=== PATIENT | female | born 1975 | race Caucasian/White ===

== ENCOUNTER 2019-09-10 17:28 | Emergency (ER) | payer BC ==
[~2019-09-10] VITALS: Ht 162.6 cm; Wt 89.0 kg
[2019-09-10 18:20] LABS: BASOPHILS # (AUTO) 0.1 X10'3 (0-0.2); BASOPHILS % (AUTO) 0.2 % (0-1); EOSINOPHILS # (AUTO) 0.1 X10'3 (0-0.9); EOSINOPHILS % (AUTO) 0.2 % (0-6); HEMATOCRIT 33.8 % (35.0-45.0); HEMOGLOBIN 11.1 g/dl (12.0-16.0); LYMPHOCYTES # (AUTO) 49.9 X10'3 (1.1-4.8); LYMPHOCYTES % (AUTO) 85.8 % (21-51); MEAN CORPUSCULAR HGB CONC 32.8 g/dL (33.0-36.5); MEAN CORPUSCULAR VOLUME 88.5 FL (78-98); MEAN PLATELET VOLUME 6.4 FL (7.4-10.4); MONOCYTES # (AUTO) 0.5 X10'3 (0-0.9); MONOCYTES % (AUTO) 0.8 % (2-12); NEUTROPHILS # (AUTO) 7.6 X10'3 (1.8-7.7); PLATELET COUNT 195 X10'3 (140-440); RED BLOOD COUNT 3.82 X10'6 (4.20-5.60); RED CELL DISTRIBUTION WIDTH 15.7 % (11.5-14.5)
[2019-09-10 18:23] LABS: WHITE BLOOD COUNT 58.2 X10'3 (4.5-11.0)
[2019-09-10 18:32] LABS: PARTIAL THROMBOPLASTIN TIME 27 SECONDS (22-32)
[2019-09-10 18:41] LABS: CLARITY,URINE CLOUDY (Clear); COLOR,URINE YELLOW (Yellow); GLUCOSE, URINE NEGATIVE (Neg); KETONES,URINE TRACE mg/dl (Neg); LEUKOCYTE ESTERASE ,URINE NEGATIVE (Neg); NITRITES, URINE NEGATIVE (Neg); OCCULT BLOOD,URINE TRACE-INTACT (Neg); PROTEIN,URINE TRACE mg/dl (Neg)
[2019-09-10 18:42] LABS: UA COLLECTION TYPE CLN CATCH MIDSTREAM
[2019-09-10 18:42] LABS: ALANINE AMINOTRANSFERASE 29 U/L (12-78); ALBUMIN 3.2 G/DL (3.4-5.0); ALBUMIN/GLOBULIN RATIO 0.9 (1.1-1.5); ALKALINE PHOSPHATASE 74 IU/L (46-116); ANION GAP 11 (8-16); ASPARTATE AMINO TRANSFERASE 17 U/L (10-37); BILIRUBIN,TOTAL 0.8 MG/DL (0.1-1.0); BLOOD UREA NITROGEN 14 MG/DL (7-18); BUN/CREATININE RATIO 15.4 (6.6-38.0); CALCIUM 8.6 MG/DL (8.5-10.1); CHLORIDE 105 MMOL/L (99-107); CREATININE 0.91 MG/DL (0.40-0.90); GLUCOSE 97 MG/DL (70-104); POTASSIUM 3.5 MMOL/L (3.5-5.1); SODIUM 140 MMOL/L (135-145); TOTAL PROTEIN 6.9 G/DL (6.4-8.2); eGFR 67 ML/MIN
[2019-09-10 18:52] LABS: BACTERIA,URINE 2+ /HPF (Neg); MUCUS STRANDS MANY /LPF (Neg); RBC,URINE 0-2 /HPF (0-2); SQUAMOUS EPITHELIAL CELL,UR MANY /LPF (FEW); WBC,URINE 0-4 /HPF (0-4)
[2019-09-10] MEDS ORDERED: acetaminophen 325mg tablet PO ONE (19:05)
[2019-09-10] MEDS ORDERED: PRED20TA PO (19:21)
[2019-09-10] MEDS ORDERED: AZIT250T83 PO (19:21)
[2019-09-10 19:30] VITALS: BP 155/80
[2019-09-10 20:31] LABS: PLATELET ESTIMATE NORMAL; TOTAL CELLS COUNTED 100
[2019-09-10 20:33] LABS: ELLIPTOCYTES 1+
== END 2019-09-10 19:32 | disposition home or self-care (01) ==
LOC: ER 17:29
DX: J40 Bronchitis, not specified as acute or chronic (principal); C91.10 Chronic lymphocytic leukemia of B-cell type not having achieved remission; Z79.899 Other long term (current) drug therapy
CPT/HCPCS: 36415; 71045; 80053; 81001; 83605; 84145; 85025; 85610; 85730; 87040; 99284

== ENCOUNTER 2022-04-05 08:06 | Emergency (ER) | payer BC, MEDICAID ==
[~2022-04-05] VITALS: Ht 160 cm; Wt 90.0 kg
[2022-04-05] MEDS ORDERED: LIDOcaine 1% 30ml preserv. free vial IJ ONE (09:55)
[2022-04-05] MEDS ORDERED: VALA500T PO (10:15)
[2022-04-05] MEDS ORDERED: AMOX-100 PO (10:15)
[2022-04-05 11:13] VITALS: BP 148/106
== END 2022-04-05 11:16 | disposition home or self-care (01) ==
LOC: ER 08:07
DX: H65.02 Acute serous otitis media, left ear (principal); G51.0 Bell's palsy; M54.2 Cervicalgia; R05.9 Cough, unspecified; M62.838 Other muscle spasm; Z85.6 Personal history of leukemia; Z79.2 Long term (current) use of antibiotics
CPT/HCPCS: 20552; 99284

== ENCOUNTER 2022-07-22 10:41 | Emergency (ER) | payer MEDICAID ==
[~2022-07-22] VITALS: Ht 162.6 cm; Wt 93.0 kg
[2022-07-22 12:04] LABS: BASOPHILS # (AUTO) 0.1 X10'3 (0-0.2); BASOPHILS % (AUTO) 1.6 % (0-1); EOSINOPHILS # (AUTO) 0.1 X10'3 (0-0.9); EOSINOPHILS % (AUTO) 1.6 % (0-6); HEMOGLOBIN 13.3 g/dl (12.0-16.0); LYMPHOCYTES # (AUTO) 1.4 X10'3 (1.1-4.8); MEAN CORPUSCULAR HEMOGLOBIN 32.1 PG (27.0-31.0); MEAN CORPUSCULAR VOLUME 91.7 FL (78-98); MEAN PLATELET VOLUME 6.3 FL (7.4-10.4); MONOCYTES # (AUTO) 0.2 X10'3 (0-0.9); MONOCYTES % (AUTO) 4.9 % (2-12); NEUTROPHILS # (AUTO) 3.3 X10'3 (1.8-7.7); NEUTROPHILS % (AUTO) 64.9 % (42-75); PLATELET COUNT 166 X10'3 (140-440); RED BLOOD COUNT 4.14 X10'6 (4.20-5.60); RED CELL DISTRIBUTION WIDTH 13.5 % (11.5-14.5); WHITE BLOOD COUNT 5.1 X10'3 (4.5-11.0)
[2022-07-22 12:22] LABS: ANION GAP 9 (8-16); CHLORIDE 106 MMOL/L (99-107); GLUCOSE 95 MG/DL (70-104); POTASSIUM 3.5 MMOL/L (3.5-5.1); SODIUM 145 MMOL/L (135-145); TOTAL CARBON DIOXIDE 29.6 MMOL/L (24-32)
[2022-07-22 12:23] LABS: ALANINE AMINOTRANSFERASE 26 U/L (12-78); ALBUMIN 4.1 G/DL (3.4-5.0); ALBUMIN/GLOBULIN RATIO 1.5 (1.1-1.5); ALKALINE PHOSPHATASE 74 IU/L (46-116); ASPARTATE AMINO TRANSFERASE 15 U/L (10-37); BILIRUBIN,TOTAL 0.9 MG/DL (0.1-1.0); BLOOD UREA NITROGEN 15 MG/DL (7-18); BUN/CREATININE RATIO 15.3 (6.6-38.0); CALCIUM 8.6 MG/DL (8.5-10.1); CREATININE 0.98 MG/DL (0.40-0.90); TOTAL PROTEIN 6.8 G/DL (6.4-8.2); eGFR 61 ML/MIN
[2022-07-22] MEDS ORDERED: PARO40TA PO (13:47)
[2022-07-22] MEDS ORDERED: LORA-269 PO (13:47)
--- NOTE | 2022-07-22 13:47 | NUR ---
pt has hx of cancer, CLL. NO LYMPHS REMOVED. PAIN IN LEFT ARM.
[2022-07-22 14:20] VITALS: BP 132/90
== END 2022-07-22 15:03 | disposition home or self-care (01) ==
LOC: ER 10:42
DX: M79.602 Pain in left arm (principal); F41.9 Anxiety disorder, unspecified; Z85.9 Personal history of malignant neoplasm, unspecified; Z79.899 Other long term (current) drug therapy
CPT/HCPCS: 36415; 71045; 80053; 83880; 84443; 84484; 85025; 93005; 99285

== ENCOUNTER 2023-10-27 07:55 | Emergency (ER) | payer MEDICAID ==
[~2023-10-27] VITALS: Ht 160 cm; Wt 90.9 kg
[~2023-10-27 07:55] MED LIST: LORA-269 PO; PARO-154 PO
[2023-10-27 08:03] VITALS: TEMP 97.9
[2023-10-27 09:48] LABS: BASOPHILS % (AUTO) 0.6 % (0-1); HEMATOCRIT 38.6 % (35.0-45.0); HEMOGLOBIN 13.2 g/dl (12.0-16.0); LYMPHOCYTES # (AUTO) 1.1 X10'3 (1.1-4.8); LYMPHOCYTES % (AUTO) 24.7 % (21-51); MEAN CORPUSCULAR HEMOGLOBIN 31.4 PG (27.0-31.0); MEAN CORPUSCULAR HGB CONC 34.2 g/dL (33.0-36.5); MEAN CORPUSCULAR VOLUME 91.8 FL (78-98); MEAN PLATELET VOLUME 6.3 FL (7.4-10.4); MONOCYTES # (AUTO) 0.2 X10'3 (0-0.9); MONOCYTES % (AUTO) 5.5 % (2-12); NEUTROPHILS % (AUTO) 68.2 % (42-75); PLATELET COUNT 160 X10'3 (140-440); RED BLOOD COUNT 4.21 X10'6 (4.20-5.60); WHITE BLOOD COUNT 4.4 X10'3 (4.5-11.0)
[2023-10-27 10:00] LABS: ALANINE AMINOTRANSFERASE 31 U/L (12-78); ALBUMIN 4.1 G/DL (3.4-5.0); ALBUMIN/GLOBULIN RATIO 1.5 (1.1-1.5); ALKALINE PHOSPHATASE 65 IU/L (46-116); ANION GAP 3 (8-16); ASPARTATE AMINO TRANSFERASE 18 U/L (10-37); BILIRUBIN,TOTAL 1.1 MG/DL (0.1-1.0); BLOOD UREA NITROGEN 14 MG/DL (7-18); CALCIUM 8.8 MG/DL (8.5-10.1); CHLORIDE 106 MMOL/L (99-107); GLUCOSE 95 MG/DL (70-104); POTASSIUM 4.1 MMOL/L (3.5-5.1); SODIUM 138 MMOL/L (135-145); TOTAL CARBON DIOXIDE 29.4 MMOL/L (24-32); TOTAL PROTEIN 6.9 G/DL (6.4-8.2); eCRCL 57 ML/MIN; eGFR 59 ML/MIN
[2023-10-27 10:08] LABS: PRO BRAIN NATRIURETIC PEPTIDE < 30 PG/ML (0-125)
[2023-10-27 10:12] LABS: BILIRUBIN,URINE NEGATIVE (Neg); CLARITY,URINE CLEAR (Clear); COLOR,URINE YELLOW (Yellow); GLUCOSE, URINE NEGATIVE (Neg); KETONES,URINE NEGATIVE (Neg); LEUKOCYTE ESTERASE ,URINE NEGATIVE (Neg); NITRITES, URINE NEGATIVE (Neg); OCCULT BLOOD,URINE NEGATIVE (Neg); PH,URINE 6.5 (4.8-8.0); PROTEIN,URINE NEGATIVE (Neg); UROBILINOGEN,URINE 0.2 E.U/dL (0.2-1.0)
[2023-10-27 10:15] LABS: UA COLLECTION TYPE CLN CATCH MIDSTREAM
[2023-10-27 10:23] LABS: HCG SERUM QL NEGATIVE
[2023-10-27] MEDS ORDERED: diphenhydrAMINE 50 mg/ml inj IV ONE (14:50)
[2023-10-27] MEDS ORDERED: magnesium 2GM in 50ml NS 50 ML IV ONE (14:50)
[2023-10-27] MEDS ORDERED: metoclopramide 5 mg/ml inj IV ONE (14:50)
[2023-10-27] MEDS ORDERED: normal saline 1000ML IV soln IVB ONE (14:50)
[2023-10-27 15:19] VITALS: BP 138/88; PULSE 77; RESP 16; O2SAT 100
== END 2023-10-27 18:41 | disposition home or self-care (01) ==
LOC: ER 07:55
DX: R51.9 Headache, unspecified (principal); R42 Dizziness and giddiness; M54.2 Cervicalgia; R11.0 Nausea; R53.83 Other fatigue; Z85.6 Personal history of leukemia; Z79.899 Other long term (current) drug therapy
CPT/HCPCS: 36415; 70450; 71045; 80053; 81003; 83880; 84484; 84703; 85025; 93005; 96365; 96366; 96375; 99285; J1200; J2765; J3475; J7030

== ENCOUNTER 2023-12-16 15:27 | Emergency (ER) | payer MEDICAID ==
[~2023-12-16] VITALS: Ht 160 cm; Wt 93.6 kg
[2023-12-16 15:43] VITALS: BP 153/90; PULSE 74; TEMP 98.5; O2SAT 98
[2023-12-16] MEDS: normal saline 1000ML IV soln IVB ONE (16:13)
[2023-12-16 16:21] VITALS: RESP 16
[2023-12-16] MEDS: ketorolac tromethamine 15mg/ml inj. IV ONE (16:21)
[2023-12-16] MEDS: proCHLORperazine 10 MG/2 ml inj IV ONE (16:22)
[2023-12-16] MEDS: diphenhydrAMINE 50 mg/ml inj IV ONE (16:22)
[2023-12-16] MEDS ORDERED: SUMA50TA17 PO (17:26)
[2023-12-16] MEDS ORDERED: ONDA4TAB12 PO (17:26)
== END 2023-12-16 17:34 | disposition home or self-care (01) ==
LOC: ER 15:28
DX: R51.9 Headache, unspecified (principal); M54.2 Cervicalgia; Z79.899 Other long term (current) drug therapy
CPT/HCPCS: 96361; 96374; 96375; 99284; J0780; J1200; J1885; J7030

== ENCOUNTER 2024-04-06 19:09 | Emergency (ER) | payer MEDICAID ==
[~2024-04-06] VITALS: Ht 160 cm; Wt 93.2 kg
[~2024-04-06 19:09] MED LIST changes: +ONDA4TAB12 PO; +SUMA50TA17 PO
[2024-04-06 19:37] LABS: BASOPHILS % (AUTO) 0.5 % (0-1); EOSINOPHILS # (AUTO) 0.1 X10'3 (0-0.9); HEMATOCRIT 36.6 % (35.0-45.0); HEMOGLOBIN 12.5 g/dl (12.0-16.0); LYMPHOCYTES # (AUTO) 1.3 X10'3 (1.1-4.8); LYMPHOCYTES % (AUTO) 28.4 % (21-51); MEAN CORPUSCULAR HEMOGLOBIN 30.9 PG (27.0-31.0); MEAN CORPUSCULAR HGB CONC 34.3 g/dL (33.0-36.5); MEAN CORPUSCULAR VOLUME 90.1 FL (78-98); MEAN PLATELET VOLUME 6.3 FL (7.4-10.4); MONOCYTES # (AUTO) 0.3 X10'3 (0-0.9); MONOCYTES % (AUTO) 5.9 % (2-12); NEUTROPHILS % (AUTO) 63.2 % (42-75); PLATELET COUNT 179 X10'3 (140-440); RED BLOOD COUNT 4.06 X10'6 (4.20-5.60); RED CELL DISTRIBUTION WIDTH 14.4 % (11.5-14.5); WHITE BLOOD COUNT 4.7 X10'3 (4.5-11.0)
[2024-04-06 19:58] LABS: ALANINE AMINOTRANSFERASE 50 U/L (12-78); ALBUMIN/GLOBULIN RATIO 1.4 (1.1-1.5); ALKALINE PHOSPHATASE 58 IU/L (46-116); ANION GAP 6 (8-16); ASPARTATE AMINO TRANSFERASE 23 U/L (10-37); BILIRUBIN,TOTAL 1.1 MG/DL (0.1-1.0); BLOOD UREA NITROGEN 17 MG/DL (7-18); BUN/CREATININE RATIO 17.3 (10.0-20.0); CHLORIDE 106 MMOL/L (99-107); CREATININE 0.98 MG/DL (0.40-0.90); GLUCOSE 103 MG/DL (70-104); LIPASE 29 U/L (16-77); POTASSIUM 3.9 MMOL/L (3.5-5.1); SODIUM 142 MMOL/L (135-145); TOTAL CARBON DIOXIDE 30.2 MMOL/L (24-32); TOTAL PROTEIN 6.9 G/DL (6.4-8.2); eCRCL 57 ML/MIN; eGFR 60 ML/MIN
[2024-04-06] MEDS: diatr meglu/diatrizoate 30ml oral sol.-(3 dose) bottle PO SCH (20:55)
[2024-04-06 21:02] LABS: BILIRUBIN,URINE NEGATIVE (Neg); CLARITY,URINE CLEAR (Clear); COLOR,URINE YELLOW (Yellow); GLUCOSE, URINE NEGATIVE (Neg); KETONES,URINE NEGATIVE (Neg); LEUKOCYTE ESTERASE ,URINE MODERATE (Neg); NITRITES, URINE NEGATIVE (Neg); OCCULT BLOOD,URINE NEGATIVE (Neg); PROTEIN,URINE NEGATIVE (Neg); UROBILINOGEN,URINE 0.2 E.U/dL (0.2-1.0)
[2024-04-06 21:03] LABS: UA COLLECTION TYPE URINAL; URINE HCG NEGATIVE (NEG)
[2024-04-06 21:11] LABS: BACTERIA,URINE NONE SEEN /HPF (Neg); MUCUS STRANDS FEW /LPF (Neg); RBC,URINE 0-2 /HPF (0-2); SQUAMOUS EPITHELIAL CELL,UR FEW /LPF (FEW); TRANSITIONAL EPI CELLS,URINE FEW /HPF
[2024-04-06 21:14] LABS: AMYLASE 24 U/L (25-115)
[2024-04-06] MEDS ORDERED: HYDR-3965 PO (22:30)
[2024-04-06] MEDS ORDERED: ketorolac trometh. 30mg/ml inj. IM ONE (22:30)
[2024-04-06] MEDS ORDERED: ONDA8TAB13 PO (22:30)
[2024-04-06] MEDS ORDERED: CEPH-585 PO (22:34)
[2024-04-06] MEDS: cephalexin 250mg capsule PO ONE (22:44)
[2024-04-06] MEDS: acetaminophen 325mg tablet PO ONE (22:44)
[2024-04-06] MEDS: ondansetron 4mg rapidly disintigrating tab PO ONE (22:45)
[2024-04-06] MEDS: ketorolac tromethamine 15mg/ml inj. IM ONE (22:46)
[2024-04-07 00:37] VITALS: BP 163/87; PULSE 71; RESP 18; TEMP 98; O2SAT 98
== END 2024-04-07 00:39 | disposition home or self-care (01) ==
LOC: ER 19:10
DX: N20.1 Calculus of ureter (principal); I10 Essential (primary) hypertension; Z79.2 Long term (current) use of antibiotics; Z79.899 Other long term (current) drug therapy
CPT/HCPCS: 36415; 74176; 80053; 81001; 81025; 82150; 83690; 85025; 87088; 96372; 99285; J1885; Q9963